=== PATIENT | female | born 1980 | race American Indian/Alaskan Native ===

== ENCOUNTER 2020-09-03 16:19 | Emergency (ER) | payer MEDICAID ==
[2020-09-03] MEDS ORDERED: Albuterol/Ipratropium 3.0-0.5 MG/3 ML Neb Soln NEB ONE (17:23)
--- NOTE | 2020-09-03 17:43 | EDM.PDOC ---
ED HPI GENERAL MEDICAL PROBLEM - General Chief Complaint: Respiratory Problem Stated Complaint: CHEST PAIN,SOB Time Seen by Provider: 09/03/20 17:20 Source of Information: Reports: Patient History Limitations: Reports: No Limitations - History of Present Illness INITIAL COMMENTS - FREE TEXT/NARRATIVE: pt c/o light headed productive cough, chest congestion and pains X 4-5 days , denies fever or chills , report dyspnea and discoloration at her toes , pt is 4 weeks s/p covid infection, has Hx of tobacco abuse , and denies any other morbidities. - Related Data Allergies Allergy/AdvReac Type Severity Reaction Status Date / Time codeine Allergy Hives Verified 09/03/20 16:40 Penicillins Allergy Hives Verified 09/03/20 16:40 ED ROS GENERAL - Review of Systems Review Of Systems: See Below Constitutional: Reports: No Symptoms HEENT: Reports: No Symptoms Respiratory: Reports: Shortness of Breath, Wheezing, Cough Cardiovascular: Reports: Chest Pain GI/Abdominal: Reports: No Symptoms Musculoskeletal: Reports: No Symptoms Skin: Reports: No Symptoms Neurological: Reports: No Symptoms ED EXAM, GENERAL - Physical Exam Exam: See Below Exam Limited By: No Limitations General Appearance: Alert, Mild Distress Eye Exam: Bilateral Eye: Normal Inspection Nose: Normal Inspection Throat/Mouth: Normal Oropharynx Head: Normocephalic Neck: Normal Inspection, Supple, Non-Tender Respiratory/Chest: No Respiratory Distress, Lungs Clear Cardiovascular: Normal Peripheral Pulses, Regular Rate, Rhythm GI/Abdominal: Normal Bowel Sounds, Soft, Non-Tender Back Exam: Normal Inspection, Full Range of Motion Extremities: Normal Inspection, Normal Range of Motion, Other (pt has purple discoloration / partially under the nails of both great toe, sarounding soft tissue is nl, CR time and sensation is nl. ) Neurological: Alert, Oriented, CN II-XII Intact Psychiatric: Normal Affect Skin Exam: Warm Course - Vital Signs Text/Narrative:: EKG/ labs/ CXR unremarkable ... pt has acute bronchitis with nonspecific sx of dizziness , chest pains / likely related to cough and discoloration under nail beds . pt was given duo nebs, she is on Levaquin and was asked to continue with this, was prescribed prednisone for few days. F/U PRN. Last Recorded V/S: Last Vital Signs Temp 36.7 C 09/03/20 16:34 Pulse 100 09/03/20 16:34 Resp 16 09/03/20 16:34 BP 107/70 09/03/20 16:34 Pulse Ox 100 09/03/20 16:34 - Orders/Labs/Meds Orders: Active Orders 24 hr Category Date Time Status EKG Documentation Completion [RC] ASDIRECTED Care 09/03/20 16:43 Active RT Aerosol Therapy [RC] ASDIRECTED Care 09/03/20 17:23 Active Chest 2V [CR] Stat Exams 09/03/20 16:44 Taken EKG 12 Lead [EK] Routine Ther 09/03/20 16:43 Ordered Labs: Laboratory Tests 09/03/20 09/03/20 Range/Units 17:20 17:20 WBC 6.8 (3.0-10.3) x10-3/uL RBC 3.86 (3.60-5.20) x10(6)uL Hgb 12.9 (11.4-15.5) g/dL Hct 37.6 (34.2-48.2) % MCV 97.4 (76.7-100.5) fL MCH 33.4 (23.9-33.9) pg MCHC 34.3 (31.9-34.8) g/dL RDW 13.1 (12.3-16.5) % Plt Count 254 (151-488) x10(3)uL MPV 9.8 (7.1-12.4) fL Neut % (Auto) 56.9 (30.8-76.2) % Lymph % (Auto) 34.2 (18.4-52.1) % Towns % (Auto) 7.0 (4.4-15.7) % Eos % (Auto) 1.5 (0.6-8.1) % Baso % (Auto) 0.4 (0.2-1.5) % Neut # (Auto) 3.9 (1.5-6.3) x10-3/uL Lymph # (Auto) 2.3 (1.0-4.4) x10-3/uL Towns # (Auto) 0.5 (0.3-1.0) x10-3/uL Eos # (Auto) 0.1 (0.0-0.8) x10-3/uL Baso # (Auto) 0.0 (0.0-0.1) x10-3/uL Sodium 140 (135-145) mmol/L Potassium 3.6 (3.5-5.3) mmol/L Chloride 104 (100-110) mmol/L Carbon Dioxide 27 (21-32) mmol/L BUN 15 (7-18) mg/dL Creatinine 0.8 (0.55-1.02) mg/dL Est Cr Clr Drug Dosing TNP Estimated GFR (MDRD) > 60 (>60) BUN/Creatinine Ratio 18.8 (9-20) Glucose 100 (80-116) mg/dL Calcium 9.3 (8.6-10.2) mg/dL Total Bilirubin 0.2 (0.1-1.3) mg/dL AST 11 (5-25) IU/L ALT 15 (12-36) U/L Alkaline Phosphatase 55 L (56-112) IU/L Total Protein 7.0 (6.0-8.0) g/dL Albumin 3.7 (3.5-5.2) g/dL Globulin 3.3 g/dL Albumin/Globulin Ratio 1.1 Meds: Medications Discontinued Medications Generic Name Dose Route Start Last Admin Trade Name Freq PRN Reason Stop Dose Admin Albuterol/Ipratropium 3 ml 09/03/20 17:23 09/03/20 17:30 Duoneb 3.0-0.5 Mg/3 Ml NEB 09/03/20 17:24 3 ml ONETIME ONE Administration Departure - Departure Time of Disposition: 18:37 Disposition: Home, Self-Care 01 Clinical Impression: Acute bronchitis - Discharge Information Referrals: PCP,None [Primary Care Provider] - Forms: ED Department Discharge Sepsis Event Note (ED) - Evaluation Sepsis Screening Result: No Definite Risk - Focused Exam Vital Signs: Vital Signs Temp Pulse Resp BP Pulse Ox 09/03/20 16:34 36.7 C 100 16 107/70 100 - My Orders Last 24 Hours: My Active Orders 09/03/20 16:43 EKG Documentation Completion [RC] ASDIRECTED EKG 12 Lead [EK] Routine 09/03/20 16:44 Chest 2V [CR] Stat 09/03/20 17:23 RT Aerosol Therapy [RC] ASDIRECTED - Assessment/Plan Last 24 Hours: My Active Orders 09/03/20 16:43 EKG Documentation Completion [RC] ASDIRECTED EKG 12 Lead [EK] Routine 09/03/20 16:44 Chest 2V [CR] Stat 09/03/20 17:23 RT Aerosol Therapy [RC] ASDIRECTED
[2020-09-03] MEDS ORDERED: predniSONE 20 MG Tab PO ONE (18:40)
[2020-09-03] MEDS ORDERED: Acetaminophen/HYDROcodone 325-5 MG Tab PO ONE ×2 (18:50→18:52)
--- NOTE | 2020-09-04 11:00 | CR ---
INDICATION: Chest congestion, pain - worse than prior day. CHEST TWO VIEWS: PA and lateral views of the chest were obtained 09/05/20 and compared with 09/02/20. No definite change or new acute process was identified. A mild degree of bronchial wall cuffing is again noted at the lung bases. MTDD
== END 2020-09-03 18:56 | disposition home or self-care (01) ==
LOC: FB.ED 16:19
DX: J20.9 Acute bronchitis, unspecified (principal); L81.9 Disorder of pigmentation, unspecified; Z88.0 Allergy status to penicillin; Z88.5 Allergy status to narcotic agent; Z72.0 Tobacco use
CPT/HCPCS: 36415; 71046; 80053; 85025; 93005; 94640; 99284; 99285; A9270; J7512; J7620-GY

== ENCOUNTER 2021-04-21 18:40 | Emergency (ER) | payer MEDICAID ==
[2021-04-21] MEDS ORDERED: Diphtheria,Pertussis(Acell),Tetanus Vaccine 0.5 ML Syringe IM ONE (20:13)
[2021-04-21] MEDS ORDERED: Ketorolac 30 MG/ML SDV IM ONE (20:13)
[2021-04-21] MEDS ORDERED: Sulfamethoxazole/Trimethoprim 800-160 MG Tab PO ONE (20:25)
--- NOTE | 2021-04-21 20:34 | EDM.PDOC ---
ED HPI GENERAL MEDICAL PROBLEM - General Chief Complaint: Upper Extremity Injury/Pain Stated Complaint: LACERATION TO FINGER Time Seen by Provider: 04/21/21 19:15 Source of Information: Reports: Patient History Limitations: Reports: No Limitations - History of Present Illness INITIAL COMMENTS - FREE TEXT/NARRATIVE: c/o hand injury works at [employer] Mon to Fri yesterday (Fri) evening she had an avocado and was prying out the pit with a 12" knife which slipped and entered her L index finger increase pain and swell today, numb in the immediate area as well but not at the finger tip last Td over 10y no PCP, has gone to walk-in in past, fairly new to area Left Hand Pain Score (Numeric/FACES): 6 - Related Data Allergies Allergy/AdvReac Type Severity Reaction Status Date / Time codeine Allergy Hives Verified 09/03/20 16:40 Penicillins Allergy Hives Verified 09/03/20 16:40 Home Meds: Home Meds predniSONE [Prednisone] 20 mg PO BID 5 Days #10 tablet 09/03/20 [Rx] Sulfamethoxazole/Trimethoprim [Sulfamethoxazole-Tmp Ds Tablet] 1 each PO BID #20 tablet 04/21/21 [Rx] Past Medical History - Past Health History Medical/Surgical History: Denies Medical/Surgical History Respiratory History: Reports: Other (See Below) Other Respiratory History: COVID-19 Aug 05, 2020 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 Social & Family History - Family History Family Medical History: No Pertinent Family History - Caffeine Use Caffeine Use: Reports: Coffee, Soda, Tea Review of Systems - Review of Systems Review Of Systems: See Below Constitutional: Reports: No Symptoms Eyes: Reports: No Symptoms Ears: Reports: No Symptoms Nose: Reports: No Symptoms Mouth/Throat: Reports: No Symptoms Respiratory: Reports: No Symptoms Cardiovascular: Reports: No Symptoms GI/Abdominal: Reports: No Symptoms Genitourinary: Reports: No Symptoms Musculoskeletal: Reports: No Symptoms Skin: Reports: Wound Neurological: Reports: No Symptoms Psychiatric: Reports: No Symptoms ED EXAM, GENERAL - Physical Exam Exam: See Below Exam Limited By: No Limitations General Appearance: Alert Respiratory/Chest: No Respiratory Distress Extremities: Other (on L hand over volar aspect of index finger proximal phalange is a 6 mm horizontal cut, just distal to MCP, subc swell without red/warm/streaks, FROM DIP/PIP/MCP, bone and MCP nontender) Neurological: Alert, Oriented, CN II-XII Intact, Normal Cognition Skin Exam: Warm, Dry, Intact, Normal Color, No Rash, Other (does have tender 1.5 cm along tendon proximal to wound and 0.5 cm along tendon distal to wound, loss of light touch in area of ~3 x 1 cm but not distal 1/2 of index finger) Lymphatic: No Adenopathy Course - Vital Signs Last Recorded V/S: Last Vital Signs Temp 36.9 C 04/21/21 18:40 Pulse 71 04/21/21 18:40 Resp 18 04/21/21 18:40 BP 121/66 04/21/21 18:40 Pulse Ox 99 04/21/21 18:40 - Orders/Labs/Meds Orders: Active Orders 24 hr Category Date Time Status Vaccines to be Administered [RC] PER UNIT ROUTINE Care 04/21/21 20:14 Ordered Fingers Second Digit Lt F1 [CR] Stat Exams 04/21/21 19:46 Ordered Meds: Medications Discontinued Medications Generic Name Dose Route Start Last Admin Trade Name Freq PRN Reason Stop Dose Admin Diphtheria/Tetanus/Acell Pertussis 0.5 ml 04/21/21 20:13 04/21/21 20:23 Diphtheria,Pertussis(Acell),Tetanus Vaccine 0.5 Ml Syringe IM 04/21/21 20:14 0.5 ml .ONCE ONE Administration Ketorolac Tromethamine 60 mg 04/21/21 20:13 04/21/21 20:21 Ketorolac 30 Mg/Ml Sdv IM 04/21/21 20:14 60 mg ONETIME ONE Administration Trimethoprim/Sulfamethoxazole 1 tab 04/21/21 20:25 Sulfamethoxazole/Trimethoprim 800-160 Mg Tab PO 04/21/21 20:26 ONETIME ONE - Re-Assessments/Exams Free Text/Narrative Re-Assessment/Exam: 04/21/21 20:41 L handed, will have her miss work in 2d (Mon) so that she can see ortho at walk- in clinic in [facility], pt aware that she may need surgery for flexor tendonitis, also aware that infection is possible which would require surgery Departure - Departure Time of Disposition: 20:26 Disposition: Home, Self-Care 01 Condition: Good Clinical Impression: Stab wound of finger of left hand with tendon involvement, Tendinitis of finger of left hand - Discharge Information *PRESCRIPTION DRUG MONITORING PROGRAM REVIEWED*: Not Applicable *COPY OF PRESCRIPTION DRUG MONITORING REPORT IN PATIENT ROD: Not Applicable Prescriptions: Sulfamethoxazole/Trimethoprim [Sulfamethoxazole-Tmp Ds Tablet] 1 each PO BID #20 tablet Instructions: Laceration Care, Adult, Tendinitis Forms: ED Department Discharge, ED Return to Work/School Form Additional Instructions: For infection, take sulfa antibiotic 2 times a day for 10 days. For pain and inflammation and swelling, take ibuprofen 200 mg 3 tabs and acetaminophen 500 mg 2 tabs 4 times a day (meals and bedtime) for 7 days. No ibuprofen tonight. Limit use of hand. Limit gripping. Not work in 2 days (Friday). No work until cleared by orthopedics to do so. Go to the [facility] at 8 AM Friday. There are at: [address] [id number] Primary Hours Fri - Fri: 8:00 AM - 4:30 PM If you are feeling worse tomorrow, go to the Emergency Department at [facility]. Sepsis Event Note (ED) - Evaluation Sepsis Screening Result: No Definite Risk - Focused Exam Vital Signs: Vital Signs Temp Pulse Resp BP Pulse Ox 04/21/21 18:40 36.9 C 71 18 121/66 99 - My Orders Last 24 Hours: My Active Orders 04/21/21 19:46 Fingers Second Digit Lt F1 [CR] Stat 04/21/21 20:14 Vaccines to be Administered [RC] PER UNIT ROUTINE - Assessment/Plan Last 24 Hours: My Active Orders 04/21/21 19:46 Fingers Second Digit Lt F1 [CR] Stat 04/21/21 20:14 Vaccines to be Administered [RC] PER UNIT ROUTINE
--- NOTE | 2021-04-23 10:00 | CR ---
INDICATION: 24 hours ago knife tip entered proximal phalanx volar aspect. LEFT SECOND FINGER: Three views of the left index finger revealed no evidence of a fracture or dislocation or other significant bone or joint abnormality. If symptoms persist - if occult fracture site is suspected clinically, reexamination in 10 to 14 days may be helpful. GENED
== END 2021-04-21 20:45 | disposition home or self-care (01) ==
LOC: FB.ED 18:40
DX: S61.211A Laceration without foreign body of left index finger without damage to nail, initial encounter (principal); Z88.5 Allergy status to narcotic agent; Z88.0 Allergy status to penicillin; Z86.16 Personal history of COVID-19; Z23 Encounter for immunization; W26.0XXA Contact with knife, initial encounter
CPT/HCPCS: 73140; 90471; 90715; 96372; 99283; A9270; J1885

== ENCOUNTER 2022-04-05 18:16 | Emergency (ER) | payer OTHER ==
[2022-04-05] MEDS ORDERED: Acetaminophen 500 MG Tab PO ONE (18:39)
[2022-04-05] MEDS ORDERED: Ibuprofen 800 MG Tab PO ONE (18:39)
[2022-04-05] MEDS ORDERED: Ondansetron 4 MG Tab.DIS PO STA (18:39)
[2022-04-05 18:56] LABS: ESTIMATED GFR 95 mL/min (>60)
== END 2022-04-05 19:10 | disposition home or self-care (01) ==
LOC: FB.ED 18:16
DX: T67.5XXA Heat exhaustion, unspecified, initial encounter (principal); Z88.5 Allergy status to narcotic agent; Z88.0 Allergy status to penicillin; Z79.899 Other long term (current) drug therapy; Z90.710 Acquired absence of both cervix and uterus; Z86.16 Personal history of COVID-19
CPT/HCPCS: 36415; 80048; 85025; 99284; A9270; Q0162

== ENCOUNTER 2022-11-19 18:04 | Emergency (ER) | payer MEDICAID, OTHER ==
[2022-11-19] MEDS ORDERED: Acetaminophen/HYDROcodone 325-5 MG Tab PO ONE (18:05)
[2022-11-19] MEDS ORDERED: Ondansetron 4 MG/2 ML SDV IVPUSH ONE (18:56)
[2022-11-19] MEDS ORDERED: Sodium Chloride 0.9% 10 ML Syringe FLUSH PRN (18:56)
[2022-11-19] MEDS ORDERED: Morphine 4 MG/ML VIAL IVPUSH ONE (18:56)
[2022-11-19] MEDS ORDERED: Sodium Chloride 0.9% 1,000 ML IV SCH (19:00)
[2022-11-19 19:29] LABS: ESTIMATED GFR 82 mL/min (>60)
== END 2022-11-19 20:30 | disposition home or self-care (01) ==
LOC: FB.ED 18:04
DX: R10.13 Epigastric pain (principal); R10.11 Right upper quadrant pain; R11.2 Nausea with vomiting, unspecified; Z88.5 Allergy status to narcotic agent; Z88.0 Allergy status to penicillin; Z86.16 Personal history of COVID-19
CPT/HCPCS: 36415; 80053; 81001; 82150; 83690; 85025; 96361; 96374; 96375; 99284-25; A9270-GY; J2270; J2405; J7030

== ENCOUNTER 2023-01-07 16:52 | Emergency (ER) | payer MEDICAID, OTHER ==
[2023-01-07] MEDS ORDERED: Acetaminophen/HYDROcodone 325-5 MG Tab PO STA (17:03)
== END 2023-01-07 18:43 | disposition home or self-care (01) ==
LOC: FB.ED 16:52
DX: S90.31XA Contusion of right foot, initial encounter (principal); S90.01XA Contusion of right ankle, initial encounter; Z88.5 Allergy status to narcotic agent; Z88.0 Allergy status to penicillin; Z86.16 Personal history of COVID-19; Z87.891 Personal history of nicotine dependence; W20.8XXA Other cause of strike by thrown, projected or falling object, initial encounter
CPT/HCPCS: 73610; 73630; 99283; A9270; 99282

== ENCOUNTER 2023-01-13 12:47 | Emergency (ER) | payer OTHER ==
[2023-01-13] MEDS ORDERED: Acetaminophen/HYDROcodone 325-5 MG Tab PO ONE (13:48)
== END 2023-01-13 15:17 | disposition home or self-care (01) ==
LOC: FB.ED 12:47
DX: S09.90XA Unspecified injury of head, initial encounter (principal); Z88.5 Allergy status to narcotic agent; Z88.0 Allergy status to penicillin; Z88.8 Allergy status to other drugs, medicaments and biological substances; Z86.16 Personal history of COVID-19; Y04.0XXA Assault by unarmed brawl or fight, initial encounter
CPT/HCPCS: 70450; 70486; 99284; A9270; 99283

== ENCOUNTER 2023-04-22 19:55 | Emergency (ER) | payer MEDICAID, OTHER ==
[2023-04-22] MEDS ORDERED: Cyclobenzaprine 10 MG Tab PO ONE (21:49)
[2023-04-22] MEDS ORDERED: Dicyclomine 10 MG Cap PO ONE (21:55)
[2023-04-22] MEDS: diphenhydrAMINE 50 MG Cap PO ONE ×2 (21:59→22:04)
== END 2023-04-22 22:06 | disposition home or self-care (01) ==
LOC: FB.ED 19:55
DX: K58.9 Irritable bowel syndrome, unspecified (principal); F17.210 Nicotine dependence, cigarettes, uncomplicated; Z88.5 Allergy status to narcotic agent; Z88.0 Allergy status to penicillin; Z88.6 Allergy status to analgesic agent; Z86.16 Personal history of COVID-19; Z90.710 Acquired absence of both cervix and uterus
CPT/HCPCS: 99283; A9270

== ENCOUNTER 2023-07-01 21:41 | Emergency (ER) | payer MEDICAID, OTHER | END 2023-07-01 22:17 | disposition home or self-care (01) | LOC: FB.ED 21:41 | DX: M77.11 Lateral epicondylitis, right elbow (principal); F17.210 Nicotine dependence, cigarettes, uncomplicated; K21.9 Gastro-esophageal reflux disease without esophagitis; Z88.0 Allergy status to penicillin; Z88.5 Allergy status to narcotic agent | CPT/HCPCS: 99283 ==